=== PATIENT | male | born 1995 | race Caucasian/White ===

== ENCOUNTER 2016-06-23 16:12 | Emergency (ER) | payer OTHER ==
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
[2016-06-23] MEDS ORDERED: IBUPROFEN 600 MG TABLET ONE (18:14)
== END 2016-06-23 18:25 | disposition home or self-care (01) ==
LOC: ED 16:12
DX: R51 Headache (principal); S16.1XXA Strain of muscle, fascia and tendon at neck level, initial encounter; V47.5XXA Car driver injured in collision with fixed or stationary object in traffic accident, initial encounter; Y92.410 Unspecified street and highway as the place of occurrence of the external cause
CPT/HCPCS: 72125; 70450; 99283 ×2; A9270